=== PATIENT | female | born 1955 | race Caucasian/White ===

== ENCOUNTER → 2016-08-23 | Outpatient (CLI) | payer BC ==
[~2016-08-23] MED LIST: CLB200 PO; DULO60CA44 PO; HYDR-5688 PO; HYDR25TA4 PO; LISI40TA PO; RIZA10TA18 PO; SIMV20TA2 PO; SYN125 PO; TRAMTAB5
--- NOTE | 2016-08-23 11:02 | DIAGNOSTIC IMAGING REPORT ---
LEG LENGTH STUDY (WHOLE LEG) CLINICAL HISTORY: LEG LENGTH DISCREPANCY COMPARISON STUDY: None. FINDINGS: The pelvis is well aligned. The right lower extremity measured from the femoral head through the tibial plafond is 82.6 cm. The left lower extremity measured from the femoral head through the tibial plafond is 82.7 cm. The right femur measure proximal a 46.2 cm and the left femur measures 46.1 cm. The right tibia measures approximately 35.8 cm and the left tibia measures approximately 36.2 cm. However, this discrepancy is alleviated due to the mild valgus angulation at the left knee. IMPRESSION: Bilateral lower extremities are symmetric in length due to the mild valgus angulation within the left lower extremity and comparison to the right. Electronically signed by: Roberth Granda M.D. 08/23/2016 11:00 AM Dictated Date/Time: 08/23/2016 10:56 AM
== END | disposition home or self-care (01) ==
LOC: C.RADBC 10:29
PROVIDERS: ATTEND Anesthesiology
DX: M21.761 Unequal limb length (acquired), right tibia (principal)

== ENCOUNTER → 2016-08-30 | Outpatient (CLI) | payer BC ==
[~2016-08-30] MED LIST changes: -TRAMTAB5
--- NOTE | 2016-08-31 10:56 | MAMMOGRAPHY REPORT ---
BILATERAL DIGITAL SCREENING MAMMOGRAM TOMOSYNTHESIS WITH CAD: 08/30/2016 CLINICAL HISTORY: Routine screening. Patient has no complaints. TECHNIQUE: Breast tomosynthesis in addition to standard 2D mammography was performed. Current study was also evaluated with a Computer Aided Detection (CAD) system. COMPARISON: Comparison is made to exams dated: 08/27/2015 mammogram, 07/26/2013 mammogram, 03/06/2015 ma mmogram, 03/06/2015 ultrasound, 08/07/2014 ultrasound, and 08/07/2014 mammogram - [facility]. BREAST COMPOSITION: There are scattered areas of fibroglandular density in both breasts. FINDINGS: There are a few stable benign-appearing microcalcifications in the breasts. A stable cir cumscribed mass in the 3:00 left breast was previously documented to represent a simple cyst on ultr asound. No new suspicious mass, architectural distortion or cluster of microcalcifications is seen. IMPRESSION: ACR BI-RADS CATEGORY 1: NEGATIVE There is no mammographic evidence of malignancy. A 1 year screening mammogram is recommended. The p atient will receive written notification of the results. Approximately 10% of breast cancers are not detected with mammography. A negative mammographic repor t should not delay biopsy if a clinically suggestive mass is present. Lashay Plummer M.D. ay/:08/30/2016 16:30:21 Officer Lieutenant: Ana CHANEL(R)(M), [facility] letter sent: Normal 1/2 BI-RADS Code: ACR BI-RADS Category 1: Negative
== END | disposition home or self-care (01) ==
LOC: C.MAMM 08:56
PROVIDERS: ATTEND Obstetrics & Gynecology
DX: Z12.31 Encounter for screening mammogram for malignant neoplasm of breast (principal)

== ENCOUNTER → 2017-05-27 | Outpatient (CLI) | payer BC ==
[2017-05-27 09:44] LABS: BASO % 0.4 %; BASO ABS # 0.03 K/uL (0-0.2); COMPLETE YES; EOS % 9.1 %; HEMATOCRIT 41.9 % (37-47); IG% 0.5 %; LYMPH % 30.5 %; MEAN CELL VOLUME 90.3 fL (80-100); MEAN CORPUSCULAR HEMOGLOBIN 30.8 pg (25-34); MEAN CORPUSCULAR HGB CONC 34.1 g/dl (32-36); MONO % 6.2 %; NEUT % 53.3 %; PLATELET COUNT 300 K/uL (130-400); RED BLOOD COUNT 4.64 M/uL (4.2-5.4); WHITE BLOOD COUNT 7.87 K/uL (4.8-10.8)
--- NOTE | 2017-05-27 12:19 | DIAGNOSTIC IMAGING REPORT ---
NUCLEAR MEDICINE BONE SCAN 3 PHASE OF THE KNEES AND LOWER LEGS CLINICAL HISTORY: CHRONIC LEFT KNEE PAIN COMPARISON STUDY: Leg length study dated 08/23/2016 FINDINGS: The patient was injected with 25.8 mCi of technetium 99m MDP. There is decreased blood flow to the symptomatic left leg as compared to the right. Blood pool images demonstrate a photopenic defect within the right knee consistent with a prior knee arthroplasty. There is increased activity within the left knee, likely arthritic. Three-hour delayed images of both lower legs were then acquired. There is moderately intense increased activity within the lateral joint compartment left knee consistent with advanced arthritis.. There is a photopenic area within the medial joint compartment consistent with a hemiarthroplasty. There is increased activity marginating the right tibial spike. In the appropriate clinical setting this could indicate loosening. IMPRESSION: 1. Slightly diminished blood flow to the symptomatic left leg as compared with the right. 2. Moderately intense increased activity involving the lateral joint compartment of the left knee consistent with advanced arthritis. 3. Mild increased activity marginating the tibial spike of the right knee. In the appropriate clinical setting this could indicate loosening Electronically signed by: Harris Oliva M.D. 05/27/2017 12:17 PM Dictated Date/Time: 05/27/2017 12:10 PM
== END | disposition home or self-care (01) ==
LOC: C.LAB 08:05
PROVIDERS: ATTEND Orthopaedic Surgery
DX: M25.562 Pain in left knee (principal); R93.7 Abnormal findings on diagnostic imaging of other parts of musculoskeletal system

== ENCOUNTER → 2017-08-31 | Outpatient (CLI) | payer BC, OTHER ==
--- NOTE | 2017-08-31 15:37 | MAMMOGRAPHY REPORT ---
BILATERAL DIGITAL SCREENING MAMMOGRAM TOMOSYNTHESIS WITH CAD: 08/31/2017 CLINICAL HISTORY: Routine screening. Patient has no complaints. TECHNIQUE: Breast tomosynthesis in addition to standard 2D mammography was performed. Current study was also evaluated with a Computer Aided Detection (CAD) system. COMPARISON: Comparison is made to exams dated: 08/30/2016 mammogram, 08/27/2015 mammogram, 03/06/2015 ma mmogram, 08/07/2014 mammogram, 07/30/2014 mammogram, and 07/26/2013 mammogram - [facility]. BREAST COMPOSITION: There are scattered areas of fibroglandular density in both breasts. FINDINGS: No suspicious masses, calcifications, or areas of architectural distortion are noted in ei ther breast. There has been no significant interval change compared to prior exams. A circumscribed mass within the left 3:00 breast is again noted and was shown to represent a benign cyst on prior ult rasound exam. Scattered bilateral benign-appearing calcifications are again noted. IMPRESSION: ACR BI-RADS CATEGORY 2: BENIGN There is no mammographic evidence of malignancy. A 1 year screening mammogram is recommended. The pa tient will receive written notification of the results. Approximately 10% of breast cancers are not detected with mammography. A negative mammographic report should not delay biopsy if a clinically suggestive mass is present. Cece Aldana M.D. ah/:08/31/2017 12:55:58 Suspect Artist: Janna SIM)(M), [facility] letter sent: Normal 1/2 BI-RADS Code: ACR BI-RADS Category 2: Benign
== END | disposition home or self-care (01) ==
LOC: C.MAMM 11:48
PROVIDERS: ATTEND Obstetrics & Gynecology
DX: Z12.31 Encounter for screening mammogram for malignant neoplasm of breast (principal)

== ENCOUNTER 2017-09-17 13:33 | Emergency (ER) | payer BC, OTHER ==
[~2017-09-17] VITALS: Ht 157.5 cm; Wt 84.0 kg
[2017-09-17 13:46] VITALS: Ht 157.5 cm; Wt 84.0 kg
[2017-09-17] MEDS ORDERED: KETOROLAC TROMETHAMINE 30 MG/ML VIAL IV STA (14:18)
--- NOTE | 2017-09-17 14:20 | EMERGENCY ROOM VISIT NOTE ---
History Report prepared by Jose Juan: Ernesto Velazquez Under the Supervision of: Dr. Leander Basilio M.D. First contact with patient: 14:07 Chief Complaint: KNEEPAIN Stated Complaint: EXCURIATING PAIN BOTH KNEES UNABLE TO WALK History of Present Illness The patient is a 62 year old female who presents to the Emergency Room with complaints of constant severe bilateral knee pain beginning two days ago. The patient states that she was sitting on the floor two days ago with her granddaughter. She notes that she got up quickly from the floor and twisted her left knee oddly but is now experiencing pain in both of her knees. She reports that initially her knees seemed tight and that her pain worsened when she walks. The patient states that her pain is worse now than it was initially. She notes that she took Celebrex and Tylenol with no relief of her symptoms. She denies having any abdominal pain, CP, and SOB. She reports that she has had a bilateral knee replacement and stopped going to physical therapy two months ago. She states she chronically has knee pain however it has gotten worse. Source of History: patient Onset: two days ago Position: knee (bilateral) Symptom Intensity: severe Quality: other (right) Timing: constant Associated Symptoms: No chest pain, No SOB, No abdominal pain Review of Systems See HPI for pertinent positives and negatives. A total of ten systems were reviewed and were otherwise negative. Past Medical & Surgical Surgical Problems: (1) History of bilateral knee replacement Family History No pertinent family history stated. Social History Smoking Status: Never Smoker Marital Status: Housing Status: lives with family Occupation Status: disabled Current/Historical Medications Scheduled Acetaminophen (Tylenol), 500 MG PO UD Amlodipine (Norvasc), 5 MG PO HS Celecoxib (Celebrex *), 1 CAPSULE PO BID Duloxetine Hcl (Cymbalta), 60 MG PO QAM Duloxetine Hcl (Cymbalta), 30 MG PO QAM Hydrochlorothiazide (Hctz), 25 MG PO HS Levothyroxine (Synthroid *), 0.125 MCG PO QAM Lisinopril (Zestril), 40 MG PO HS Rizatriptan Benzoate (Maxalt), 10 MG PO Q6HR PRN Simvastatin (Zocor), 40 MG PO QPM Scheduled PRN Oxycodone/Acetaminophen 5MG/325MG (Percocet 5MG/325MG), 1 TAB PO TID PRN for Pain Allergies Coded Allergies: No Known Allergies (Verified , 09/17/17) Physical Exam Vital Signs Date Time Temp Pulse Resp B/P (MAP) Pulse Ox O2 Delivery O2 Flow Rate FiO2 09/17/17 17:32 37.0 91 16 121/81 96 09/17/17 17:09 91 16 121/81 96 Room Air 09/17/17 15:15 93 16 125/84 96 Room Air 09/17/17 13:46 37.0 111 18 120/78 97 Room Air Physical Exam Physical Exam GENERAL: She is oriented to person, place, and time. She appears well- developed and well-nourished. She does not appear distressed. HENT: Exam performed. Head: Normocephalic and atraumatic. Right Ear: External ear normal. No mastoid tenderness. Left Ear: External ear normal. No mastoid tenderness. Mouth/Throat: The oropharynx is clear and moist. No trismus in the jaw. No dental abscesses or uvula swelling. No oropharyngeal exudate or tonsillar abscesses. EYES: Conjunctivae and EOM are normal. Pupils are equal, round, and reactive to light. Right eye exhibits no discharge. Left eye exhibits no discharge. No scleral icterus. NECK: Normal range of motion. Neck supple. No JVD present. No spinous process tenderness present. No carotid bruit present. No rigidity. No tracheal deviation and normal range of motion present. No Brudzinski's sign and no Kernig 's sign noted. CV: Normal rate, regular rhythm, normal heart sounds and intact distal pulses. There is no peripheral edema. Palpable radial pulses bue. PULM/CHEST: Effort normal and breath sounds normal. No respiratory distress. No stridor. She has no wheezes. She has no rales. Chest Wall: She exhibits no tenderness. ABD: The abdomen is soft. Bowel sounds are normal. She has no distension. No mass is present. There is no tenderness. There is no rebound, no guarding, no Jimenez's sign and no tenderness at McBurney's point. Rovsig negative MUSC/SKEL: There is no peripheral edema and tenderness. Scars in the bilateral knees anteriorly, no overlying erythema and discharge, well healed, limited range of active motion secondary to pain, full range of passive motion, Manisha negative bilaterally, posterior drawer negative bilaterally, Harjeet negative bilaterally, palpable DP and PT pulses in the bilateral lower extremities, no effusion in the bilateral knees. Pelvis stable no pain on palpation of the pelvis. LYMPH: No cervical adenopathy. NEURO: She is alert and oriented to person, place, and time. She has normal strength. No cranial nerve deficit or sensory deficit. Coordination and gait normal. GCS eye subscore is 4. GCS verbal subscore is 5. GCS motor subscore is 6. Cerebellar tests wnl. SKIN: Skin is warm and dry. She is not diaphoretic. PSYCH: She has a normal mood and affect. Her behavior is normal. Judgment and thought content normal. Medical Decision & Procedures ER Provider Diagnostic Interpretation: Radiology results as stated below per my review and radiologist interpretation: LEFT KNEE 4 VIEWS FINDINGS: AP, crosstable lateral, tunnel, and sunrise views of left knee are compared to study dated 12/22/2010. The skeletal structures are osteopenic. No fracture is seen. A hemiarthroplasty of the medial compartment is in near-anatomic alignment. No periprosthetic lucency is identified. A large degenerative geode is seen in the tibial plateau. Advanced degenerative narrowing is seen in the lateral and patellofemoral compartments. There is bony sclerosis and osteochondral irregularity in the lateral compartment with large marginal osteophytes. Bony overgrowth is noted along the medial aspect of the joint space. There are large patellar enthesophytes, and degenerative spurring is seen along the posterior aspect of the distal femur. A joint effusion is identified. The overlying soft tissues are normal in appearance. IMPRESSION: 1. No acute bony abnormality is identified in the left knee noting a hemiarthroplasty in place. 2. Advanced degenerative change as above. 3. Joint effusion. Electronically signed by: Gerson Murphy M.D. 09/17/2017 3:41 PM RIGHT KNEE 5 VIEWS FINDINGS: AP, crosstable lateral, bilateral oblique, and sunrise views of the right knee are compared to study dated 11/23/2011. The skeletal structures are osteopenic. No fracture is seen. A right knee arthroplasty is in near-anatomic alignment. There is a long tibial stem. Mild periprosthetic lucency is suggested around the tibial component. There has been undersurface remodeling of the patella. Mild bony overgrowth is noted along the lateral aspect of the joint space. No joint effusion is identified. The overlying soft tissues are within normal limits. IMPRESSION: 1. No acute osseous abnormality is seen in the right knee. 2. A right knee arthroplasty is in near-anatomic alignment as above. 3. Periprosthetic lucency is suggested around the tibial component. This is nonspecific and could be seen in the setting of loosening. Clinical correlation will be required. Electronically signed by: Gerson Murphy M.D. 09/17/2017 3:30 PM Medications Administered Medications (Trade) Dose Ordered Sig/Nish Route Start Time Stop Time Status Last Admin Dose Admin Ketorolac Tromethamine (Toradol Inj) 15 mg NOW STAT IV 09/17/17 14:18 09/17/17 14:20 DC 09/17/17 14:37 15 MG Oxycodone/ Acetaminophen (Percocet 5-325mg Tab) 1 tab NOW ONCE PO 09/17/17 15:45 09/17/17 15:46 DC 09/17/17 15:38 1 TAB ED Course 1411: The patient was evaluated in room B3. A complete history and physical exam was performed. The patient and family member state they are concerned she has an infection in her bilateral knee hardware and that they "want it cut out" . I explained to them that she has no physical exam findings consistent with septic arthritis including no effusion, no redness, and full ROM passively. In addition, it would be uncommon for both of her knees to have septic joints at the same time unless the patient is IVDA, which she states she is not. 1418: Toradol Inj 15mg IV 1545: Oxycodone/Acetaminophen 1 tab PO 1628: Vital signs stable. Patient states her pain is better status post analgesia in the emergency department. She is able to ambulate. Left knee x- ray shows no acute injury. Right knee x-ray shows periprosthetic lucency which could be seen in the setting of loosening. I spoke to [facility]. They agree that the patient can follow up with them next week. I attempted to query PDMP. The website however states that the side is currently unavailable. DC with analgesia, states he is driving home. I reevaluated and updated the patient. Her pain is better after Percocet. DISCHARGE - Plan of care discussed with patient and questions answered. The patient was given both verbal and printed discharge instructions. The patient verbalized understanding and ability to comply. The patient is to seek outpatient follow up as noted in the discharge instructions. The patient verbalized understanding and ability to comply. The patient is discharged in stable condition. The patient was instructed to return for worsening symptoms. Medical Decision The patient and family member state they are concerned she has an infection in her bilateral knee hardware and that they "want it cut out". I explained to them that she has no physical exam findings consistent with septic arthritis including no effusion, no redness, and full ROM passively. In addition, it would be uncommon for both of her knees to have septic joints at the same time unless the patient is IVDA, which she states she is not. Vital signs stable. Patient states her pain is better status post analgesia in the emergency department. She is able to ambulate. Left knee x-ray shows no acute injury. Right knee x-ray shows periprosthetic lucency which could be seen in the setting of loosening. I spoke to [facility]. They agree that the patient can follow up with them next week. I attempted to query PDMP. The website however states that the side is currently unavailable. DC with analgesia, states he is driving home. I reevaluated and updated the patient. Her pain is better after Percocet. DISCHARGE - Plan of care discussed with patient and questions answered. The patient was given both verbal and printed discharge instructions. The patient verbalized understanding and ability to comply. The patient is to seek outpatient follow up as noted in the discharge instructions. The patient verbalized understanding and ability to comply. The patient is discharged in stable condition. The patient was instructed to return for worsening symptoms. [place] Drug Monitoring Program Search Results: see additional documentation Drug Monitoring Findings: I attempted to query PDMP. The website however states that the side is currently unavailable. Medication Reconcilliation Current Medication List: was personally reviewed by me Blood Pressure Screening Patient's blood pressure: Normal blood pressure Blood pressure disposition: Did not require urgent referral Impression Primary Impression: Knee pain Scribe Attestation The scribe's documentation has been prepared under my direction and personally reviewed by me in its entirety. I confirm that the note above accurately reflects all work, treatment, procedures, and medical decision making performed by me. The chart was completed utilizing CU[employer] voice recognition software. Grammatical errors, random word insertions, pronoun errors, and incomplete sentences are an occasional consequence of this system due to software limitations, ambient noise, and hardware issues. Any formal questions or concerns about the content, text, or information contained within the body of this dictation should be directly addressed to the physician for clarification. Departure Information Dispostion Home / Self-Care Prescriptions Oxycodone/Acetaminophen 5MG/325MG (PERCOCET 5MG/325MG) Tab 1 TAB PO TID Y for Pain, #14 TAB Prov: Leander Basilio M.D. 09/17/17 Referrals Quang Aguero M.D. (PCP) Forms HOME CARE DOCUMENTATION FORM, IMPORTANT VISIT INFORMATION Patient Instructions My [facility] Additional Instructions Call [facility] office on Tuesday to schedule follow-up outpatient appointment. Problem Qualifiers Primary Impression: Knee pain Chronicity: chronic Laterality: bilateral Qualified Codes: M25.561 - Pain in right knee; M25.562 - Pain in left knee; G89.29 - Other chronic pain
--- NOTE | 2017-09-17 15:31 | DIAGNOSTIC IMAGING REPORT ---
RIGHT KNEE 5 VIEWS CLINICAL HISTORY: Chronic right knee pain. FINDINGS: AP, crosstable lateral, bilateral oblique, and sunrise views of the right knee are compared to study dated 11/23/2011. The skeletal structures are osteopenic. No fracture is seen. A right knee arthroplasty is in near-anatomic alignment. There is a long tibial stem. Mild periprosthetic lucency is suggested around the tibial component. There has been undersurface remodeling of the patella. Mild bony overgrowth is noted along the lateral aspect of the joint space. No joint effusion is identified. The overlying soft tissues are within normal limits. IMPRESSION: 1. No acute osseous abnormality is seen in the right knee. 2. A right knee arthroplasty is in near-anatomic alignment as above. 3. Periprosthetic lucency is suggested around the tibial component. This is nonspecific and could be seen in the setting of loosening. Clinical correlation will be required. Electronically signed by: Gerson Murphy M.D. 09/17/2017 3:30 PM Dictated Date/Time: 09/17/2017 3:27 PM
--- NOTE | 2017-09-17 15:42 | DIAGNOSTIC IMAGING REPORT ---
LEFT KNEE 4 VIEWS CLINICAL HISTORY: Chronic left knee pain. FINDINGS: AP, crosstable lateral, tunnel, and sunrise views of left knee are compared to study dated 12/22/2010. The skeletal structures are osteopenic. No fracture is seen. A hemiarthroplasty of the medial compartment is in near-anatomic alignment. No periprosthetic lucency is identified. A large degenerative geode is seen in the tibial plateau. Advanced degenerative narrowing is seen in the lateral and patellofemoral compartments. There is bony sclerosis and osteochondral irregularity in the lateral compartment with large marginal osteophytes. Bony overgrowth is noted along the medial aspect of the joint space. There are large patellar enthesophytes, and degenerative spurring is seen along the posterior aspect of the distal femur. A joint effusion is identified. The overlying soft tissues are normal in appearance. IMPRESSION: 1. No acute bony abnormality is identified in the left knee noting a hemiarthroplasty in place. 2. Advanced degenerative change as above. 3. Joint effusion. Electronically signed by: Gerson Murphy M.D. 09/17/2017 3:41 PM Dictated Date/Time: 09/17/2017 3:38 PM
[2017-09-17] MEDS ORDERED: OXYCODONE/ACETAMINOPHEN 5-325 TAB PO ONE (15:45)
[2017-09-17] MEDS ORDERED: ACET-1256 PO (16:22)
[2017-09-17] MEDS ORDERED: AMLO-110 PO (16:22)
[2017-09-17] MEDS ORDERED: CYM/30 PO (16:22)
[2017-09-17] MEDS ORDERED: OXYC-57 PO (17:10)
[2017-09-17 17:32] VITALS: BP 121/81; PULSE 91; TEMP 37; O2SAT 96
== END 2017-09-17 17:33 | disposition home or self-care (01) ==
LOC: C.EDB 13:35
DX: M25.561 Pain in right knee (principal); M25.562 Pain in left knee; G89.29 Other chronic pain; Z79.899 Other long term (current) drug therapy; Z96.653 Presence of artificial knee joint, bilateral

== ENCOUNTER → 2017-09-21 | Outpatient (CLI) | payer BC ==
[~2017-09-21] MED LIST changes: +ACET-1256 PO; +AMLO-110 PO; +CYM/30 PO; -HYDR-5688 PO; +OXYC-57 PO
[2017-09-21 13:14] LABS: BASO % 0.3 %; BASO ABS # 0.02 K/uL (0-0.2); EOS % 3.6 %; EOS ABS # 0.24 K/uL (0-0.5); HEMATOCRIT 41.3 % (37-47); HEMOGLOBIN 13.9 g/dL (12.0-16.0); IG# 0.09 K/uL (0.00-0.02); LYMPH % 29.7 %; LYMPH ABS # 1.97 K/uL (1.2-3.4); MEAN CELL VOLUME 89.2 fL (80-100); MEAN CORPUSCULAR HGB CONC 33.7 g/dl (32-36); MONO % 7.5 %; NEUT % 57.5 %; NEUT ABS # 3.81 K/uL (1.4-6.5); PLATELET COUNT 364 K/uL (130-400); RED CELL DISTRIBUTION WIDTH CV 13.2 % (11.5-14.5); RED CELL DISTRIBUTION WIDTH SD 43.4 fL (36.4-46.3); WHITE BLOOD COUNT 6.63 K/uL (4.8-10.8)
[2017-09-21 13:49] LABS: ALT/SGPT 20 U/L (12-78); AST/SGOT 13 U/L (15-37); BLOOD UREA NITROGEN 20 mg/dl (7-18); CALCIUM 9.2 mg/dl (8.5-10.1); CARBON DIOXIDE 28 mmol/L (21-32); CREATININE 0.62 mg/dl (0.60-1.20); GLUCOSE 147 mg/dl (70-99); POTASSIUM 4.1 mmol/L (3.5-5.1); SODIUM 138 mmol/L (136-145)
[2017-09-21 13:55] LABS: HEMOGLOBIN A1C 6.8 % (4.5-5.6)
[2017-09-21 14:00] LABS: ALKALINE PHOSPHATASE 66 U/L (45-117); CHOLESTEROL 237 mg/dl (0-200); LDL CHOLESTEROL CALCULATED 156 mg/dl; TOTAL PROTEIN 7.6 gm/dl (6.4-8.2)
== END | disposition home or self-care (01) ==
LOC: C.LABPBG 09:35
PROVIDERS: ATTEND Orthopaedic Surgery
DX: G89.29 Other chronic pain (principal); E03.9 Hypothyroidism, unspecified; R73.9 Hyperglycemia, unspecified

== ENCOUNTER → 2017-09-23 | Outpatient (CLI) | payer BC | END | disposition home or self-care (01) | LOC: C.LAB 12:45 | PROVIDERS: ATTEND Physician Assistant Medical | DX: T84.033D Mechanical loosening of internal left knee prosthetic joint, subsequent encounter (principal); X58.XXXA Exposure to other specified factors, initial encounter ==